=== PATIENT | male | born 2000 | race Caucasian/White ===

== ENCOUNTER 2024-12-11 08:28 | Emergency (ER) | payer OTHER, SELFPAY ==
[2024-12-11 08:38] VITALS: BP 135/77; PULSE 84; RESP 20; TEMP 36.2; O2SAT 99
--- NOTE | 2024-12-11 08:40 | ED.GENADULT ---
HPI - General Adult General Chief complaint: Extremity Problem,Nontraumatic Stated complaint: Toe Nail Problem Time Seen by Provider: 12/11/24 08:40 Source: patient, RN notes reviewed and old records reviewed Mode of arrival: ambulatory Limitations: no limitations History of Present Illness HPI narrative: 24-year-old male who presents to [facility] with complaints of right great ingrown toenail medial aspect for the past week duration. Patient has raised red tissue along medial great toe which is draining some bloody purulent drainage. Patient reports that josé has cleansed the area with peroxide and applied band-aide. Patient reports no fevers, chills or sweats. MD complaint: right great toenail Onset (ago): week(s) (1) Location: right and lower extremity (right great toe) Severity: moderate Treatments prior to arrival: other (cleansed with peroxide) Related Data Allergies Allergy/AdvReac Type Severity Reaction Status Date / Time amoxicillin Allergy Mild rash Verified 12/11/24 08:41 clavulanic acid (From Allergy Mild rash Verified 12/11/24 08:41 Augmentin) Review of Systems Review of Systems: CONSTITUTIONAL: Denies fever, chills, or sweats. CARDIOVASCULAR: Denies chest pain, palpitations, or edema. RESPIRATORY: Denies cough or dyspnea. GASTROINTESTINAL: Denies abdominal pain, nausea, vomiting SKIN: Reports redness and swelling to the tissue along medial aspect of right great toe, reports some bloody purulent drainage from wound reports some tenderness to toe, with no swelling of toe noted. MUSCULOSKELETAL: Denies myalgia. NEUROLOGIC: Denies headache, numbness All systems reviewed & are unremarkable except as noted in HPI and below PMFSH Social History Social History (Updated 12/11/24 @ 09:08 by Latrice Head NP) Smoking status: Never smoker Alcohol intake: unknown Substance use: unknown Gender identity (if verbalized by the patient): Male Comments At time of signature, agree with nursing past medical, surgical, social and family history. There is no relevant family history pertinent to the presenting complaint Exam Narrative: GENERAL: Well-appearing, well-nourished, and in no acute distress. HEAD: Normocephalic, atraumatic. EYES: PERRLA and EOMI. ENT: Nares clear, no rhinorrhea or epistaxis. Mucous membranes moist. NECK: Supple. no lymphadenopathy CHEST: Clear to auscultation. No respiratory distress, SAO2 99% on room air HEART: Regular rate and rhythm. No murmur heard. Normal peripheral pulses. ABDOMEN: Soft, nontender, nondistended, normal active bowel sounds. EXTREMITIES: Normal range of motion. No edema. SKIN: Warm, dry. Erythema, induration, tenderness, along medial aspect of right great toe nail with some bloody purulent drainage noted. no vesicles noted, no swelling or warmth of right great toe. NEURO: No focal deficits. Alert and oriented x3. Course Course Emergency Course: Patient is aware of diagnosis, understands and agrees to treatment plan. Anticipatory guidance given. Patient agrees to follow-up as directed and is aware of reasons to seek care at the emergency department. Portions of this record may have been created with voice recognition software Level of Care: Express Care Visit Vital Signs Vital signs: Vital Signs Temperature 36.2 C L 12/11/24 08:38 Pulse Rate 84 12/11/24 08:38 Respiratory Rate 20 12/11/24 08:38 Blood Pressure 135/77 12/11/24 08:38 Pulse Oximetry 99 12/11/24 08:38 Oxygen Delivery Room Air 12/11/24 08:38 Temperature 36.2 C L 12/11/24 08:38 Pulse Rate 84 12/11/24 08:38 Respiratory Rate 20 12/11/24 08:38 Blood Pressure 135/77 12/11/24 08:38 Pulse Oximetry 99 12/11/24 08:38 Oxygen Delivery Room Air 12/11/24 08:38 Reviewed Medical Decision Making Differential Diagnosis Differential Diagnosis: ingrown toenail right great toenail, pain right great toe,paronychia right great toe Medical Records Medical records reviewed: Yes I reviewed the external patient's medical records. Vital Signs Vital Signs: Vital Signs Temperature 36.2 C L 12/11/24 08:38 Pulse Rate 84 12/11/24 08:38 Respiratory Rate 20 12/11/24 08:38 Blood Pressure 135/77 12/11/24 08:38 Pulse Oximetry 99 12/11/24 08:38 Oxygen Delivery Room Air 12/11/24 08:38 Temperature 36.2 C L 12/11/24 08:38 Pulse Rate 84 12/11/24 08:38 Respiratory Rate 20 12/11/24 08:38 Blood Pressure 135/77 12/11/24 08:38 Pulse Oximetry 99 12/11/24 08:38 Oxygen Delivery Room Air 12/11/24 08:38 reviewed Critical Care Time Critical Care Time Critical Care Time: No Discharge Plan Discharge Clinical Impression: Ingrown right big toenail Patient Disposition: Home, Self-Care Condition: Stable Instructions: Antibiotic Form, Ingrown Nail (ED) Additional Instructions: Soak right great toe in liquid Dial soap twice daily, rinse, pat dry and apply mupirocin ointment to toe cover with Band-Aid watch for increasing infection--redness, swelling, drainage Antibiotic as prescribed complete all doses Tylenol or ibuprofen for any fever pain follow up with Podiatry Dr. Suero [phone] located at [facility] recheck if develop fever, chills, increasing symptom Go to the ER if your symptoms become worse of if ANY new symptoms develop If your symptoms persist, change or worsen significantly before you can contact your personal physician then please, without delay, go to the emergency department for further evaluation. Follow-up with PCP in 7-10 days or sooner if needed Follow up with PCP soon in regards to your blood pressure which is elevated above threshold for referral. Blood pressure above 120/80 may indicate pre-hypertension. 135/77 Patient Language: Hebrew Prescriptions: New sulfamethoxazole-trimethoprim [Bactrim DS] 800-160 mg tablet 1 tablet PO Q12H Qty: 14 0RF Rx Instructions: Take with food if you notice any rash stop Medicine immediately mupirocin [Centany] 2 % ointment 1 applic topical BID Qty: 22 0RF Rx Instructions: to right great toe Follow-up/Referrals: PHYSICIAN,SUPERVISOR PREPRESS [Primary Care Provider] - Time of Disposition: 08:57 Quality Rebekah Coma Scale Eyes: Open Verbal: Oriented and Alert Motor: Follows Commands Rebekah Coma Total Score: 15
--- OUTSIDE RECORDS SUMMARY | 2024-12-11 11:26 | XMS_ITS | Continuity of Care Document ---
Author Organization [facility] Address [address] [place] [address] [place] [address] Phone Care Team Providers Care Ophthalmic Medical Technologist Name Role Phone Les Valdovinos MD Unavailable Unavailable Allergies, Adverse Reactions, Alerts Substance Reaction Status Criticality PENICILLIN Active No Information Medications Medication Instructions Dosage Effective Dates (start - stop) Status Comments No Drug Therapy Prescribed Procedures Procedure Date PREV VISIT, NEW, AGE 12-17 Advance Directives Directive Yes / No Effective Date File Name No Information Encounters Encounter Description Practice Location Reason(s) For Visit Diagnoses Date Provider Providers Copied on Encounter PREV VISIT, NEW, AGE 12-17 [facility], [address] [place], [place], [id number], [place] tel:[phone] [facility] PHysical (chief complaint) Encntr for routine child health exam w/o abnormal findings [facility]. [address] [place], [id number], [place]. tel:[phone] Referring Provider: Les Valdovinos [address] [facility] [place], [id number]. tel:[phone] Family History Family Member Type Diagnosis Age At Onset No Information Payers Payer name Insurance type Covered constitution party ID Authoriza tion(s) No Information Social History Type Description Quantity Date Captured Comments Alcohol Use Details No Caffeine Use Details Unknown Tobacco Use Status Never smoked tobacco 2016 Smoking Status Never smoker Non-Smoking Tobacco Use Details : No Details Available : No Details Available Sex Male Vital Signs Date / Time: Height Weight BMI Pulse Rate Blood Pressure Temperature Respiratory Rate Body Surface Area Head Circumference BMI percentile Pulse Ox Inhaled Ox 5:50 PM 67.00 in 171.00 lbs 26.7 8 kg/m eter (2) 76 /min 113/68 mm[Hg] 98.2 F 18 /min 91 Chief Complaint And Reason For Visit From encounter dated '01/05/2017 16:00'. PHysical (chief complaint). Description: Pt needs annual physical for school. Pt is a good student academically in school. Pt does not use drug or alcohol or tobacco. pt does not have any learning disability or social interactiond difficulty. Pt brought his shot records today. Plan Of Treatment Date Type Action Status No Information History Of Present Illness Encounter Date Complaint History Of Prese nt Illness PHysical Pt needs annual physical for school. Pt is a good student academically in school. Pt does not use drug or alcohol or tobacco. pt does not have any learning disability or social interactiond difficulty. Pt brought his shot records today. Medications Administered Medication Instructions Dosage Effective Dates (start - stop) Status Comments No Drug Therapy Prescribed Instructions Date Instruction Additional Infor mation No Information Assessments Type Assessment Date assessment Encntr for routine child health exam w/o abnormal findings Mental Status Date Cognitive Assessment Orientation - [place] ed to time, place, person, situation.
== END 2024-12-11 09:02 | disposition home or self-care (01) ==
PROVIDERS: Emergency Provider Registered Nurse
DX: L60.0 Ingrowing nail (principal)
CPT/HCPCS: 99213; G0463